=== PATIENT | female | born 1970 | race Caucasian/White ===

== ENCOUNTER 2018-11-08 16:38 | Emergency (ER) | payer OTHER, SELFPAY ==
[2018-11-08 16:51] VITALS: BP 162/96; PULSE 68; RESP 16; TEMP 36.7; O2SAT 98
--- NOTE | 2018-11-08 18:14 | DI.RAD_ITS ---
SYMPTOMS/DIAGNOSIS: PAIN MEDIAL, TWISTED RIGHT KNEE: No fracture or joint effusion is seen. The joint spaces are well maintained. IMPRESSION: Negative right knee.
--- NOTE | 2018-11-08 18:15 | W.ED.GENAD ---
Discharge Plan Disposition Patient Disposition: HOME Discharge Details Chief Complaint: Orthopedic Clinical Impression: Injury of knee, right Primary Care Provider: Nevaeh,Local ED Provider: Ezekiel Jhaveri Home Meds and New Rx's Prescriptions: Continued topiramate 25 mg Tablet 2 tab PO BID RF: 0 ferrous sulfate 325 mg (65 mg iron) Tablet 1 tab PO BID RF: 0 esomeprazole magnesium [Nexium] 40 mg Capsule,Delayed Release(Dr/Ec) 40 mg PO DAILY RF: 0 Discharge Instructions Instructions: Hinged Knee Brace (ED) Additional Instructions: Please use a hinged knee brace and crutches over the next week. You can bear weight on your leg as tolerated. Use ice and ibuprofen. Dose according to label. If pain persists or worsens, please follow-up with orthopedics. Please contact your primary care physician to arrange follow-up. Return to the ER for any worsening or new concerning symptoms. Referrals: [facility] [Provider Group] Kaushal Granger MD [ [facility] STAFF PHYSICIAN] - Medical Decision Making 47-year-old female presents 1 week after twisting her right knee with recurrent injury yesterday, tender along her medial joint line with no appreciable effusion. Pain is worse with flexion and with ambulation. I suspect her injury is a sprain of the medial collateral ligament versus medial meniscal tear. X-ray of the right knee reviewed and interpreted by radiology: negative. Plan for hinged knee brace and crutches and follow-up with orthopedics should pain not improve with supportive management which I reviewed with the patient. HPI General Mode of arrival: ambulatory. Date/Time Provider Initiated Documentation: 11/08/18 16:58. Limitations to Documentation: no limitations. Information obtained by: patient. HPI Narrative: 47-year-old female presents with chief complaint of right knee pain. Patient notes that she twisted her right knee about a week ago with a slip and fall. Knee seem to be healing well with decreased pain and inflammation over the past week. She has been using ibuprofen which has helped. She notes the pain was almost completely resolved until yesterday when she was shelved by a patient at the rehab facility. She thinks she tweaked her knee yesterday. The pain is flared up. Pain is localized to medial knee. Pain worse with flexion and with ambulation. Patient denies direct trauma to her knee. No other injuries. Related Data Home Medications Medication Instructions Recorded Confirmed esomeprazole magnesium [Nexium] 40 mg PO DAILY 11/08/18 11/08/18 ferrous sulfate 1 tab PO BID 11/08/18 11/08/18 topiramate 2 tab PO BID 11/08/18 11/08/18 Allergies Allergy/AdvReac Type Severity Reaction Status Date / Time codeine Allergy Severe Unverified 11/08/18 16:55 simvastatin [From Zocor] Allergy Severe Unverified 11/08/18 16:56 shell fish Allergy Severe Anaphylaxsi Uncoded 11/08/18 16:56 s General Stated Complaint: Orthopedic VIPUL: 4 Review of Systems Musculoskeletal Reports as per HPI, Denies numbness and Denies tingling Neurologic Denies numbness and Denies tingling PFSH Medical History Anemia (Chronic) GERD (gastroesophageal reflux disease) (Chronic) Social History Smoking/Tobacco Use Status: Never Exam Const General: cooperative, healthy appearing and comfortable Orientation: alert and awake Cardio Pulses: posterior tibial pulses present on the right 2+ Extrem Right lower extremity: knee Details: tenderness Location: of the medial joint line, abnormal ROM Details: pain with passive ROM during Details: in flexion and other (neg ant drawer ) Course Vital Signs Temperature 36.7 C 11/08/18 16:51 Pulse 68 11/08/18 16:51 Respiratory Rate 16 11/08/18 16:51 Blood Pressure 162/96 H 11/08/18 16:51 Pulse Oximetry 98 11/08/18 16:51 Temperature 36.7 C 11/08/18 16:51 Temperature Source Skin 11/08/18 16:51 Pulse 68 11/08/18 16:51 Respiratory Rate 16 11/08/18 16:51 Respiratory Effort 11/08/18 16:51 Blood Pressure 162/96 H 11/08/18 16:51 Blood Pressure Position Sitting 11/08/18 16:51 Pulse Oximetry 98 11/08/18 16:51 Oxygen Delivery Method Room Air 11/08/18 16:51 Oxygen Flow Rate 0 11/08/18 16:51 Pain Level 8 11/08/18 16:51
--- NOTE | 2018-11-08 18:21 | ED.GENADUL_ITS ---
Discharge Plan Disposition Patient Disposition: HOME Discharge Details Chief Complaint: Orthopedic Clinical Impression: Injury of knee, right Primary Care Provider: Nevaeh,Local ED Provider: Ezekiel Jhaveri Home Meds and New Rx's Prescriptions: Continued topiramate 25 mg Tablet 2 tab PO BID RF: 0 ferrous sulfate 325 mg (65 mg iron) Tablet 1 tab PO BID RF: 0 esomeprazole magnesium [Nexium] 40 mg Capsule,Delayed Release(Dr/Ec) 40 mg PO DAILY RF: 0 Discharge Instructions Instructions: Hinged Knee Brace (ED) Additional Instructions: Please use a hinged knee brace and crutches over the next week. You can bear weight on your leg as tolerated. Use ice and ibuprofen. Dose according to label. If pain persists or worsens, please follow-up with orthopedics. Please contact your primary care physician to arrange follow-up. Return to the ER for any worsening or new concerning symptoms. Referrals: [facility] [Provider Group] Kaushal Granger MD [ [facility] STAFF PHYSICIAN] - Medical Decision Making 47-year-old female presents 1 week after twisting her right knee with recurrent injury yesterday, tender along her medial joint line with no appreciable effusion. Pain is worse with flexion and with ambulation. I suspect her injury is a sprain of the medial collateral ligament versus medial meniscal tear. X-ray of the right knee reviewed and interpreted by radiology: negative. Plan for hinged knee brace and crutches and follow-up with orthopedics should pain not improve with supportive management which I reviewed with the patient. HPI General Mode of arrival: ambulatory . Date/Time Provider Initiated Documentation: 11/08/18 16:58 . Limitations to Documentation: no limitations . Information obtained by: patient . HPI Narrative: 47-year-old female presents with chief complaint of right knee pain. Patient notes that she twisted her right knee about a week ago with a slip and fall. Knee seem to be healing well with decreased pain and inflammation over the past week. She has been using ib uprofen which has helped. She notes the pain was almost completely resolved until yesterday when she was shelved by a patient at the rehab facility. She thinks she tweaked her knee yesterday. The pain is flared up. Pain is localized to medial knee. Pain worse with flexion and with ambulation. Patient denies direct trauma to her knee. No other injuries. Related Data Home Medications Medication Instructions Recorded Confirmed esomeprazole magnesium [Nexium] 40 mg PO DAILY 11/08/18 11/08/18 ferrous sulfate 1 tab PO BID 11/08/18 11/08/18 topiramate 2 tab PO BID 11/08/18 11/08/18 Allergies Allergy/AdvReac Type Severity Reaction Status Date / Time codeine Allergy Severe Unverified 11/08/18 16:55 simvastatin [From Zocor] Allergy Severe Unverified 11/08/18 16:56 shell fish Allergy Severe Anaphylaxsi Uncoded 11/08/18 16:56 s General Stated Complaint: Orthopedic VIPUL: 4 Review of Systems Musculoskeletal Reports as per HPI, Denies numbness and Denies tingling Neurologic Denies numbness and Denies tingling PFSH Medical History Anemia (Chronic) GERD (gastroesophageal reflux disease) (Chronic) Social History Smoking/Tobacco Use Status: Never Exam Const General: cooperative, healthy appearing and comfortable Orientation: alert and awake Cardio Pulses: posterior tibial pulses present on the right 2+ Extrem Right lower extremity: knee Details: tenderness Location: of the medial joint line, abnormal ROM Details: pain with passive ROM during Details: in flexion and other (neg ant drawer ) Course Vital Signs Temperature 36.7 C 11/08/18 16:51 Pulse 68 11/08/18 16:51 Respiratory Rate 16 11/08/18 16:51 Blood Pressure 162/96 H 11/08/18 16:51 Pulse Oximetry 98 11/08/18 16:51 Temperature 36.7 C 11/08/18 16:51 Temperature Source Skin 11/08/18 16:51 Pulse 68 11/08/18 16:51 Respiratory Rate 16 11/08/18 16:51 Respiratory Effort 11/08/18 16:51 Blood Pressure 162/96 H 11/08/18 16:51 Blood Pressure Position Sitting 11/08/18 16:51 Pulse Oximetry 98 11/08/18 16:51 Oxygen Delivery Method Room Air 11/08/18 16:51 Oxygen Flow Rate 0 11/08/18 16:51 Pain Level 8 11/08/18 16:51
--- NOTE | 2018-11-08 19:59 | DI.VRAD_ITS ---
EXAM: XR Right Knee, 3 Views EXAM DATE/TIME: 11/08/2018 7:25 PM CLINICAL HISTORY: 47 years old, female; Pain; Knee; Right; Patient HX: RT knee pain after fall TECHNIQUE: XR Right knee 3 views. COMPARISON: No relevant prior studies available. FINDINGS: The bony structures are in anatomic alignment. No fracture is present. No radiopaque foreign body is identified. The joint spaces are well maintained. IMPRESSION: No evidence of acute bony abnormality. Dictated and Authenticated by: Danyel Hernandez MD. Ordering:ACE Falcon MD
== END 2018-11-08 20:16 | disposition home or self-care (01) ==
PROVIDERS: Emergency Provider Student in an Organized Health Care Education/Training Program
DX: S89.92XA Unspecified injury of left lower leg, initial encounter (principal); X50.9XXA Other and unspecified overexertion or strenuous movements or postures, initial encounter
CPT/HCPCS: 29505; 73562; 99283; E0114; L1810